=== PATIENT | female | born 1985 | race Caucasian/White ===

== ENCOUNTER 2021-12-04 01:48 | Emergency (ER) | payer MEDICAID ==
[~2021-12-04] VITALS: Ht 162.6 cm; Wt 95.5 kg
[2021-12-04 03:12] LABS: URINE HCG NEGATIVE (NEG)
[2021-12-04] MEDS ORDERED: ketorolac trometh inj. 60 MG/2 ML VIAL IM ONE (03:30)
[2021-12-04 04:39] VITALS: BP 129/75
== END 2021-12-04 04:41 | disposition home or self-care (01) ==
LOC: ER 01:48
DX: M54.89 Other dorsalgia (principal); R06.02 Shortness of breath; F17.200 Nicotine dependence, unspecified, uncomplicated; Z88.1 Allergy status to other antibiotic agents
CPT/HCPCS: 71045; 81025; 93005; 96372; 99285; J1885

== ENCOUNTER 2022-06-15 21:45 | Emergency (ER) | payer MEDICAID ==
[~2022-06-15] VITALS: Ht 162.6 cm; Wt 86.4 kg
[2022-06-15 22:11] VITALS: BP 169/105
[2022-06-16] MEDS ORDERED: LIDOcaine 5% patch TP STA (03:23)
[2022-06-16] MEDS ORDERED: ibuprofen tablet 400 MG TABLET PO ONE (03:25)
[2022-06-16] MEDS ORDERED: acetaminophen 325mg tablet PO ONE (03:25)
== END 2022-06-16 05:26 | disposition left against medical advice (07) ==
LOC: ER 21:45
DX: M54.2 Cervicalgia (principal); R50.9 Fever, unspecified; Z88.0 Allergy status to penicillin; R51.9 Headache, unspecified
CPT/HCPCS: 87040; 93005; 99284